=== PATIENT | female | born 1955 ===

== ENCOUNTER 2021-04-13 11:46 | Emergency (ER) | payer OTHER ==
[2021-04-13] MEDS ORDERED: Sodium Chloride 0.9% 10 ML Syringe FLUSH PRN (12:15)
[2021-04-13] MEDS ORDERED: Albuterol/Ipratropium 3.0-0.5 MG/3 ML Neb Soln NEB ONE (12:19)
--- NOTE | 2021-04-13 12:27 | EDM.PDOC ---
<Douglas Alfonso M - Last Filed: 04/13/21 13:38> ED HPI GENERAL MEDICAL PROBLEM - General Chief Complaint: Respiratory Problem Stated Complaint: AMBULANCE Time Seen by Provider: 04/13/21 12:10 - Related Data Allergies Allergy/AdvReac Type Severity Reaction Status Date / Time No Known Allergies Allergy Verified 04/13/21 12:25 Course - Radiology Interpretation Free Text/Narrative:: [facility] - [facility] Final Radiology Report Call: [phone] assistance Online chat: [email or web address] Name: VIRY PACHECO Age: 66Years F Date: 04/13/2021 SSN: -- : 1955 Study: CR CHEST 1V FRONTAL Requesting Physician: Behzad Jones Images: 1 Addl Studies: Provided Clinical History: sob Contrast: Contrast Medium: Contrast Amount: Contrast Method: CONFIDENTIALITY STATEMENT This report is intended only for use by the referring physician, and only in accordance with law. If you received this in error, call [phone]. Page 1 of 1 PROCEDURE INFORMATION: Exam: XR Chest Exam date and time: 04/13/2021 12:45 PM Age: 66 years old Clinical indication: Shortness of breath; Additional info: SOB TECHNIQUE: Imaging protocol: XR of the chest. Views: 1 view. COMPARISON: No relevant prior studies available. FINDINGS: Lungs: Bilateral vascular congestion. Bilateral lower lobe moderate airspace consolidations. Pleural spaces: Prominence of the vascular pedicle. Bilateral small pleural effusions. Heart/Mediastinum: Cardiomegaly. Bones/joints: Unremarkable. IMPRESSION: 1. Bilateral lower lobe consolidations compatible with pneumonitis. 2. Cardiomegaly with small pleural effusions. Cannot exclude congestive heart failure. Thank you for allowing us to participate in the care of your patient. Dictated and Authenticated by: Magda Magdaleno MD 04/13/2021 1:33 PM Central Time ([place] & [place]) Departure - Departure Disposition: DC/Tfer to [facility] 02 Clinical Impression: NSTEMI (non-ST elevated myocardial infarction) Heart failure Qualifiers: Heart failure type: unspecified Heart failure chronicity: acute Qualified Code(s): I50.9 - Heart failure, unspecified Renal failure Qualifiers: Renal failure chronicity: acute Acute renal failure type: unspecified Qualified Code(s): N17.9 - Acute kidney failure, unspecified - Discharge Information Forms: ED Department Discharge, Interfacility Transfer EMTLISANDRO <Behzad Jones - Last Filed: 04/13/21 14:26> ED HPI GENERAL MEDICAL PROBLEM - General Source of Information: Reports: Patient History Limitations: Reports: No Limitations - History of Present Illness INITIAL COMMENTS - FREE TEXT/NARRATIVE: 66 y/o F brought in by EMS for SOB. Per pt the symptoms started around 10 pm last night and have progressively gotten worse. The pt has no resp hx other than WATSON and attempted to use her CPAP to ease her breathing with no relief. The pt reportedly has diabetes but does not take anything. She also has kidney disease that has been being managed by [facility]. Denies, fever, chills, cp, abd pn, drugs, etoh, wilkins, vision prob. Onset: Gradual Duration: Hour(s):, Getting Worse Location: Reports: Chest Severity: Severe ED ROS GENERAL - Review of Systems Review Of Systems: Comprehensive ROS is negative, except as noted in HPI. ED EXAM, GENERAL - Physical Exam Exam: See Below Exam Limited By: Respiratory Distress General Appearance: Alert, Anxious Eye Exam: Bilateral Eye: PERRL Throat/Mouth: Other (dry oropharynx) Head: Atraumatic, Normocephalic Neck: Supple, Non-Tender Respiratory/Chest: Respiratory Distress, Wheezing Cardiovascular: Normal Peripheral Pulses, Regular Rate, Rhythm GI/Abdominal: Soft, Non-Tender Rectal (Female) Exam: Deferred Extremities: Normal Inspection, Normal Range of Motion, Non-Tender, Normal Capillary Refill, No Pedal Edema Neurological: Alert, Oriented Psychiatric: Normal Affect, Normal Mood Skin Exam: Warm, Dry, Intact Course - Vital Signs Last Recorded V/S: Last Vital Signs Temp 95.8 F L 04/13/21 12:17 Pulse 80 04/13/21 12:17 Resp 25 H 04/13/21 12:17 BP 147/59 H 04/13/21 12:17 Pulse Ox 97 04/13/21 12:17 - Orders/Labs/Meds Orders: Active Orders 24 hr Category Date Time Status Peripheral IV Care [RC] . DIRECTED Care 04/13/21 12:19 Active RT Aerosol Therapy [RC] ASDIRECTED Care 04/13/21 12:19 Active REFLEX LACTIC ACID YES OR NO [CHEM] Routine Lab 04/13/21 13:15 Received Nitroglycerin 25 MG in D5W @ 10 MCG/MIN (250ml) Premix Med 04/13/21 14:00 Ordered Nitroglycerin/D5W [Nitroglycerin 25 MG/D5W 250 ML] 25 mg in 250 ml IV TITRATE Sodium Chloride 0.9% [Saline Flush] Med 04/13/21 12:15 Active 10 ml FLUSH ASDIRECTED PRN Peripheral IV Insertion Adult [OM.PC] Routine Oth 04/13/21 12:18 Ordered Medication Orders Nitroglycerin/Dextrose (Nitroglycerin 25 Mg/D5w 250 Ml) 25 mg in 250 mls @ 6 mls/hr IV TITRATE NATASHA; Protocol Sodium Chloride (Sodium Chloride 0.9% 10 Ml Syringe) 10 ml FLUSH ASDIRECTED PRN PRN Reason: Keep Vein Open Last Admin: 04/13/21 12:31 Dose: 10 ml Documented by: WESLEY Labs: Laboratory Tests 04/13/21 04/13/21 04/13/21 Range/Units 12:26 12:34 12:34 WBC 12.6 H (5.0-10.0) 10^3/uL RBC 3.45 L (4.2-5.4) 10^6/uL Hgb 9.9 L (12.0-16.0) g/dL Hct 31.6 L (37.0-47.0) % MCV 91.6 (80-100) fL MCH 28.7 (27.0-34.0) pg MCHC 31.3 L (33.0-35.0) g/dL Plt Count 228 (150-450) 10^3/uL Neut % (Auto) 92.1 H (42.2-75.2) % Lymph % (Auto) 4.7 L (20.5-50.1) % [place] % (Auto) 2.9 (2-8) % Eos % (Auto) 0.1 L (1.0-3.0) % Baso % (Auto) 0.2 (0.0-1.0) % ABG pH (7.35-7.45) ABG pCO2 (35-45) mmHg ABG pO2 (70-100) mmHg ABG HCO3 (22-26) mmol/L ABG O2 Saturation (95-100) % ABG Base Excess ((-2)-(+3)) mmol/L Joshua Test O2 Delivery Device Sodium 134 L (136-145) mmol/L Potassium 5.5 H (3.5-5.1) mmol/L Chloride 99 (98-107) mmol/L Carbon Dioxide 19 L (21-32) mmol/L Anion Gap 21.5 H (7-13) mEq/L BUN 64 H (7-18) mg/dL Creatinine 4.48 H (0.55-1.02) mg/dL Est Cr Clr Drug Dosing 8.63 mL/min Estimated GFR (MDRD) 10 BUN/Creatinine Ratio 14.3 (No establ ref range) Glucose 642 H* (70-99) mg/dL Lactic Acid (0.4-2.0) mmol/L Calcium 7.8 L (8.5-10.1) mg/dL Magnesium 2.4 (1.8-2.4) mg/dL Total Bilirubin 0.3 (0.2-1.0) mg/dL AST 79 H (15-37) U/L ALT 31 (14-59) U/L Alkaline Phosphatase 112 (46-116) U/L Ammonia (11-32) umol/L Troponin I High Sens 14630 H* (<=51) pg/mL B-Natriuretic Peptide (0-100) pg/ml Total Protein 7.4 (6.4-8.2) g/dL Albumin 3.1 L (3.4-5.0) g/dL Globulin 4.3 Albumin/Globulin Ratio 0.72 Amylase (25-115) U/L Lipase (73-393) U/L Urine Color (YELLOW) Urine Appearance (CLEAR) Urine pH (5.0-9.0) Ur Specific [place] (1.005-1.030) Urine Protein (NEGATIVE) Urine Glucose (UA) (NEGATIVE) Urine Ketones (NEGATIVE) Urine Occult Blood (NEGATIVE) Urine Nitrite (NEGATIVE) Urine Bilirubin (NEGATIVE) Urine Urobilinogen (0.2-1.0) mg/dL Ur Leukocyte Esterase (NEGATIVE) Urine RBC (0-5) /HPF Urine WBC (0-5/HPF) /HPF Ur Epithelial Cells (NOT SEEN) /HPF Urine Bacteria (0-FEW/HPF) /HPF Urine Mucus (NOT SEEN) /LPF Urine Opiates Screen (NEGATIVE) Ur Oxycodone Screen (NEGATIVE) Urine Methadone Screen (NEGATIVE) Ur Barbiturates Screen (NEGATIVE) U Tricyclic Antidepress (NEGATIVE) Ur Phencyclidine Scrn (NEGATIVE) Ur Amphetamine Screen (NEGATIVE) U Methamphetamines Scrn (NEGATIVE) Urine MDMA Screen (NEGATIVE) U Benzodiazepines Scrn (NEGATIVE) Urine Cocaine Screen (NEGATIVE) U Marijuana (THC) Screen (NEGATIVE) Ethyl Alcohol < 3 (0) mg/dL SARS-CoV-2 RNA (BRANDI) Negative (NEGATIVE) 04/13/21 04/13/21 04/13/21 Range/Units 12:34 12:34 12:41 WBC (5.0-10.0) 10^3/uL RBC (4.2-5.4) 10^6/uL Hgb (12.0-16.0) g/dL Hct (37.0-47.0) % MCV (80-100) fL MCH (27.0-34.0) pg MCHC (33.0-35.0) g/dL Plt Count (150-450) 10^3/uL Neut % (Auto) (42.2-75.2) % Lymph % (Auto) (20.5-50.1) % [place] % (Auto) (2-8) % Eos % (Auto) (1.0-3.0) % Baso % (Auto) (0.0-1.0) % ABG pH 7.27 L (7.35-7.45) ABG pCO2 37 (35-45) mmHg ABG pO2 86 (70-100) mmHg ABG HCO3 16.6 L (22-26) mmol/L ABG O2 Saturation 97 (95-100) % ABG Base Excess -9 L ((-2)-(+3)) mmol/L Joshua Test Performed O2 Delivery Device Non rebr mask Sodium (136-145) mmol/L Potassium (3.5-5.1) mmol/L Chloride (98-107) mmol/L Carbon Dioxide (21-32) mmol/L Anion Gap (7-13) mEq/L BUN (7-18) mg/dL Creatinine (0.55-1.02) mg/dL Est Cr Clr Drug Dosing mL/min Estimated GFR (MDRD) BUN/Creatinine Ratio (No establ ref range) Glucose (70-99) mg/dL Lactic Acid 3.6 H* (0.4-2.0) mmol/L Calcium (8.5-10.1) mg/dL Magnesium (1.8-2.4) mg/dL Total Bilirubin (0.2-1.0) mg/dL AST (15-37) U/L ALT (14-59) U/L Alkaline Phosphatase (46-116) U/L Ammonia (11-32) umol/L Troponin I High Sens (<=51) pg/mL B-Natriuretic Peptide 2140 H (0-100) pg/ml Total Protein (6.4-8.2) g/dL Albumin (3.4-5.0) g/dL Globulin Albumin/Globulin Ratio Amylase 27 (25-115) U/L Lipase 84 (73-393) U/L Urine Color (YELLOW) Urine Appearance (CLEAR) Urine pH (5.0-9.0) Ur Specific [place] (1.005-1.030) Urine Protein (NEGATIVE) Urine Glucose (UA) (NEGATIVE) Urine Ketones (NEGATIVE) Urine Occult Blood (NEGATIVE) Urine Nitrite (NEGATIVE) Urine Bilirubin (NEGATIVE) Urine Urobilinogen (0.2-1.0) mg/dL Ur Leukocyte Esterase (NEGATIVE) Urine RBC (0-5) /HPF Urine WBC (0-5/HPF) /HPF Ur Epithelial Cells (NOT SEEN) /HPF Urine Bacteria (0-FEW/HPF) /HPF Urine Mucus (NOT SEEN) /LPF Urine Opiates Screen (NEGATIVE) Ur Oxycodone Screen (NEGATIVE) Urine Methadone Screen (NEGATIVE) Ur Barbiturates Screen (NEGATIVE) U Tricyclic Antidepress (NEGATIVE) Ur Phencyclidine Scrn (NEGATIVE) Ur Amphetamine Screen (NEGATIVE) U Methamphetamines Scrn (NEGATIVE) Urine MDMA Screen (NEGATIVE) U Benzodiazepines Scrn (NEGATIVE) Urine Cocaine Screen (NEGATIVE) U Marijuana (THC) Screen (NEGATIVE) Ethyl Alcohol (0) mg/dL SARS-CoV-2 RNA (BRANDI) (NEGATIVE) 04/13/21 04/13/21 04/13/21 Range/Units 13:35 13:35 13:41 WBC (5.0-10.0) 10^3/uL RBC (4.2-5.4) 10^6/uL Hgb (12.0-16.0) g/dL Hct (37.0-47.0) % MCV (80-100) fL MCH (27.0-34.0) pg MCHC (33.0-35.0) g/dL Plt Count (150-450) 10^3/uL Neut % (Auto) (42.2-75.2) % Lymph % (Auto) (20.5-50.1) % [place] % (Auto) (2-8) % Eos % (Auto) (1.0-3.0) % Baso % (Auto) (0.0-1.0) % ABG pH (7.35-7.45) ABG pCO2 (35-45) mmHg ABG pO2 (70-100) mmHg ABG HCO3 (22-26) mmol/L ABG O2 Saturation (95-100) % ABG Base Excess ((-2)-(+3)) mmol/L Joshua Test O2 Delivery Device Sodium (136-145) mmol/L Potassium (3.5-5.1) mmol/L Chloride (98-107) mmol/L Carbon Dioxide (21-32) mmol/L Anion Gap (7-13) mEq/L BUN (7-18) mg/dL Creatinine (0.55-1.02) mg/dL Est Cr Clr Drug Dosing mL/min Estimated GFR (MDRD) BUN/Creatinine Ratio (No establ ref range) Glucose (70-99) mg/dL Lactic Acid (0.4-2.0) mmol/L Calcium (8.5-10.1) mg/dL Magnesium (1.8-2.4) mg/dL Total Bilirubin (0.2-1.0) mg/dL AST (15-37) U/L ALT (14-59) U/L Alkaline Phosphatase (46-116) U/L Ammonia < 10 L (11-32) umol/L Troponin I High Sens (<=51) pg/mL B-Natriuretic Peptide (0-100) pg/ml Total Protein (6.4-8.2) g/dL Albumin (3.4-5.0) g/dL Globulin Albumin/Globulin Ratio Amylase (25-115) U/L Lipase (73-393) U/L Urine Color Yellow (YELLOW) Urine Appearance Slightly cloudy (CLEAR) Urine pH 5.5 (5.0-9.0) Ur Specific [place] >= 1.030 (1.005-1.030) Urine Protein >=300 H (NEGATIVE) Urine Glucose (UA) 500 H (NEGATIVE) Urine Ketones Negative (NEGATIVE) Urine Occult Blood Large H (NEGATIVE) Urine Nitrite Negative (NEGATIVE) Urine Bilirubin Negative (NEGATIVE) Urine Urobilinogen 0.2 (0.2-1.0) mg/dL Ur Leukocyte Esterase Negative (NEGATIVE) Urine RBC 0-5 (0-5) /HPF Urine WBC 0-5 (0-5/HPF) /HPF Ur Epithelial Cells Rare (NOT SEEN) /HPF Urine Bacteria Not seen (0-FEW/HPF) /HPF Urine Mucus Not seen (NOT SEEN) /LPF Urine Opiates Screen Negative (NEGATIVE) Ur Oxycodone Screen Negative (NEGATIVE) Urine Methadone Screen Negative (NEGATIVE) Ur Barbiturates Screen Negative (NEGATIVE) U Tricyclic Antidepress Negative (NEGATIVE) Ur Phencyclidine Scrn Negative (NEGATIVE) Ur Amphetamine Screen Negative (NEGATIVE) U Methamphetamines Scrn Negative (NEGATIVE) Urine MDMA Screen Negative (NEGATIVE) U Benzodiazepines Scrn Negative (NEGATIVE) Urine Cocaine Screen Negative (NEGATIVE) U Marijuana (THC) Screen Negative (NEGATIVE) Ethyl Alcohol (0) mg/dL SARS-CoV-2 RNA (BRANDI) (NEGATIVE) Meds: Medications Generic Name Dose Route Start Last Admin Trade Name Freq PRN Reason Stop Dose Admin Nitroglycerin/Dextrose 25 mg in 250 mls @ 6 mls/hr 04/13/21 14:00 Nitroglycerin 25 Mg/D5w 250 Ml IV TITRATE NATASHA Protocol 10 MCG/MIN Sodium Chloride 10 ml 04/13/21 12:15 04/13/21 12:31 Sodium Chloride 0.9% 10 Ml Syringe FLUSH 10 ml ASDIRECTED PRN Administration Keep Vein Open Discontinued Medications Generic Name Dose Route Start Last Admin Trade Name Freq PRN Reason Stop Dose Admin Albuterol/Ipratropium 9 ml 04/13/21 12:19 04/13/21 12:30 Albuterol/Ipratropium 3.0-0.5 Mg/3 Ml Neb Soln NEB 04/13/21 12:20 9 ml ONETIME ONE Administration Aspirin 324 mg 04/13/21 13:23 04/13/21 13:28 Aspirin 81 Mg Tab.Chew PO 04/13/21 13:24 324 mg ONETIME ONE Administration Furosemide 20 mg 04/13/21 13:27 04/13/21 13:38 Furosemide 20 Mg/2 Ml Vial IVPUSH 04/13/21 13:28 20 mg ONETIME ONE Administration Lorazepam 1 mg 04/13/21 13:00 04/13/21 13:04 Lorazepam 2 Mg/Ml Sdv IVPUSH 04/13/21 13:01 1 mg ONETIME ONE Administration Ondansetron HCl 4 mg 04/13/21 12:45 04/13/21 12:51 Ondansetron 4 Mg/2 Ml Sdv IVPUSH 04/13/21 12:46 4 mg ONETIME ONE Administration - Re-Assessments/Exams Free Text/Narrative Re-Assessment/Exam: 04/13/21 14:21 No beds available at [facility] 1315 no beds at [place] [address] Dr[address] Biswas accepted the pt to Er at 1327 hours at [facility]. She qill be taken there by air ambulance. Departure - Departure Time of Disposition: 14:23 Condition: Fair - Discharge Information *PRESCRIPTION DRUG MONITORING PROGRAM REVIEWED*: Not Applicable *COPY OF PRESCRIPTION DRUG MONITORING REPORT IN PATIENT SABA: Not Applicable Sepsis Event Note (ED) - Evaluation Sepsis Screening Result: No Definite Risk - Focused Exam Vital Signs: Vital Signs Temp Pulse Resp BP Pulse Ox 04/13/21 12:17 95.8 F L 80 25 H 147/59 H 97 - My Orders Last 24 Hours: My Active Orders 04/13/21 12:15 Sodium Chloride 0.9% [Saline Flush] 10 ml FLUSH ASDIRECTED PRN 04/13/21 12:18 Peripheral IV Insertion Adult [OM.PC] Routine 04/13/21 12:19 Peripheral IV Care [RC] . DIRECTED RT Aerosol Therapy [RC] ASDIRECTED 04/13/21 13:15 REFLEX LACTIC ACID YES OR NO [CHEM] Routine 04/13/21 14:00 Nitroglycerin 25 MG in D5W @ 10 MCG/MIN (250ml) Premix Nitroglycerin/D5W [Nitroglycerin 25 MG/D5W 250 ML] 25 mg in 250 ml IV TITRATE - Assessment/Plan Last 24 Hours: My Active Orders 04/13/21 12:15 Sodium Chloride 0.9% [Saline Flush] 10 ml FLUSH ASDIRECTED PRN 04/13/21 12:18 Peripheral IV Insertion Adult [OM.PC] Routine 04/13/21 12:19 Peripheral IV Care [RC] . DIRECTED RT Aerosol Therapy [RC] ASDIRECTED 04/13/21 13:15 REFLEX LACTIC ACID YES OR NO [CHEM] Routine 04/13/21 14:00 Nitroglycerin 25 MG in D5W @ 10 MCG/MIN (250ml) Premix Nitroglycerin/D5W [Nitroglycerin 25 MG/D5W 250 ML] 25 mg in 250 ml IV TITRATE
[2021-04-13] MEDS ORDERED: Ondansetron 4 MG/2 ML SDV IVPUSH ONE (12:45)
[2021-04-13 12:46] LABS: BASE EXCESS ARTERIAL -9 mmol/L ((-2)-(+3)); BICARBONATE,ARTERIAL 16.6 mmol/L (22-26); O2 DELIVERY DEVICE NON REBR MASK; O2 SATURATION ARTERIAL 97 % (95-100); PCO2 ARTERIAL 37 mmHg (35-45); PO2 ARTERIAL 86 mmHg (70-100)
[2021-04-13 12:47] LABS: ALLEN TEST PERFORMED
[2021-04-13] MEDS ORDERED: LORazepam 2 MG/ML SDV IVPUSH ONE (13:00)
[2021-04-13 13:14] LABS: ANION GAP 21.5 mEq/L (7-13); CHLORIDE,CL 99 mmol/L (98-107); SODIUM,NA 134 mmol/L (136-145)
[2021-04-13] MEDS ORDERED: Aspirin 81 MG Tab.Chew PO ONE (13:23)
[2021-04-13] MEDS ORDERED: Furosemide 20 MG/2 ML VIAL IVPUSH ONE (13:27)
--- NOTE | 2021-04-13 13:34 | CR ---
PROCEDURE INFORMATION: Exam: XR Chest Exam date and time: 04/13/2021 12:45 PM Age: 66 years old Clinical indication: Shortness of breath; Additional info: SOB TECHNIQUE: Imaging protocol: XR of the chest. Views: 1 view. COMPARISON: No relevant prior studies available. FINDINGS: Lungs: Bilateral vascular congestion. Bilateral lower lobe moderate airspace consolidations. Pleural spaces: Prominence of the vascular pedicle. Bilateral small pleural effusions. Heart/Mediastinum: Cardiomegaly. Bones/joints: Unremarkable. IMPRESSION: 1. Bilateral lower lobe consolidations compatible with pneumonitis. 2. Cardiomegaly with small pleural effusions. Cannot exclude congestive heart failure.
[2021-04-13 13:51] LABS: AMPHETAMINES,URINE NEGATIVE (NEGATIVE); BARBITURATES,URINE NEGATIVE (NEGATIVE); BENZODIAZEPINE,URINE NEGATIVE (NEGATIVE); MDMA (ECSTASY), URINE NEGATIVE (NEGATIVE); METHADONE,URINE NEGATIVE (NEGATIVE); METHAMPHETAMINES,URINE NEGATIVE (NEGATIVE); OPIATES,URINE NEGATIVE (NEGATIVE); OXYCODONE,URINE NEGATIVE (NEGATIVE); PHENCYCLIDINE,URINE NEGATIVE (NEGATIVE); TCA,URINE NEGATIVE (NEGATIVE)
[2021-04-13] MEDS ORDERED: Nitroglycerin/D5W 25 MG/250 ML BOTTLE IV SCH (14:00)
== END 2021-04-13 14:57 ==
LOC: DL.ED 11:46
DX: I21.4 Non-ST elevation (NSTEMI) myocardial infarction (principal); I11.0 Hypertensive heart disease with heart failure; I50.9 Heart failure, unspecified; N17.9 Acute kidney failure, unspecified; Z20.822 Contact with and (suspected) exposure to COVID-19
CPT/HCPCS: 36415; 36600; 71045; 80053; 80305; 80307; 81001; 82140; 82150; 82803; 82947; 83605; 83690; 83735; 83880; 84484; 85025; 87635; 93005; 94660; 96374; 96375; 99285; A9270; J1940; J2060; J2405; J3490; J7620-GY; U0002